=== PATIENT | female | born 1995 | race Caucasian/White ===

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

== ENCOUNTER 2018-12-08 20:23 | Emergency (ER) | payer BC, OTHER ==
[~2018-12-08] VITALS: Ht 157.5 cm; Wt 47.7 kg
[~2018-12-08 20:23] MED LIST changes: +PREDNISONE20 MG PO; +WELLBUTRIN XL300 M1 PO; +ZANAFLEX 4MG TAB4 MG PO
[2018-12-08 20:29] VITALS: BP 148/82; TEMP 98.4
[2018-12-08 20:53] LABS: COLLECTION METHOD CLEAN CATCH
[2018-12-08] MEDS ORDERED: ZANAFLEX 4MG TAB4 MG PO (21:06)
[2018-12-08] MEDS ORDERED: LEXAPRO 5MG5 MG PO (21:06)
[2018-12-08 21:07] LABS: PH 7 (5-8); SQUAMOUS EPITHELIAL None Seen /hpf; URINE APPEARANCE Clear; URINE BACTERIA None Seen /hpf; URINE BILIRUBIN Negative (NEGATIVE); URINE BLOOD Negative (NEGATIVE); URINE COLOR Straw; URINE GLUCOSE Negative (NEGATIVE); URINE KETONE Negative (NEGATIVE); URINE LEUKOCYTE ESTERASE Negative (NEGATIVE); URINE NITRATE Negative (NEGATIVE); URINE PROTEIN(semi-quant) Negative (NEGATIVE); URINE RBC 0-2 /hpf; URINE UROBILINOGEN Negative (NEGATIVE)
[2018-12-08] MEDS ORDERED: CALAN120 MG PO (21:07)
[2018-12-08] MEDS ORDERED: PAMELOR 25MG25 MG PO (21:07)
[2018-12-08 21:24] LABS: ALANINE AMINOTRANSFERASE 25 U/L (9-52); ALBUMIN 4.8 gm/dL (3.5-5.0); ALKALINE PHOSPHATASE 69 U/L (50-136); ANION GAP 14 mmol/L (7-16); AST,SGOT 50 U/L (15-37); BILIRUBIN,TOTAL 0.6 mg/dL (0.0-1.0); BLOOD UREA NITROGEN 10 mg/dL (7-17); C-REACTIVE PROTEIN < 0.5 mg/dL (0.0-0.9); CARBON DIOXIDE 25 mmol/L (22-30); CHLORIDE 103 mmol/L (98-107); CREATININE, serum 0.58 (0.52-1.25); GLUCOSE 82 mg/dL (74-106); LIPASE 67 U/L (23-300); POTASSIUM 4.3 mmol/L (3.4-5.0); SODIUM 142 mmol/L (137-145); TOTAL PROTEIN 8.5 gm/dL (6.4-8.2)
[2018-12-08 21:27] LABS: BASO # 0.1 (0.0-0.2); BASO % 0.8 % (0.0-2.0); EOS # 0.1 (0.0-0.7); EOS % 1.3 % (0-4.0); GRAN # 4.1 (1.4-6.5); GRAN % 47.6 % (42.2-75.2); HEMATOCRIT 45.9 % (37.0-47.0); LYMPH # 3.7 (1.2-3.4); LYMPH % 42.8 % (20.0-51.0); MEAN CELL VOLUME 91 fl (80.0-100.0); MEAN CORPUSCULAR HEMOGLOBIN 30 pg (27.0-31.0); MEAN CORPUSCULAR HGB CONC 33 g/dl (33.0-37.0); MEAN PLATELET VOLUME 9.1 fl (7.4-10.4); MONO # 0.6 (0.1-0.6); MONO % 7.4 % (1.7-9.3); PLATELET COUNT 260 K/mm3 (130-400); RED BLOOD COUNT 5.02 M/mm3 (4.10-5.30); REDCELL DISTRIBUTION WIDTH-CV 12.1 % (11.5-14.5)
[2018-12-09 01:48] VITALS: PULSE 83
== END 2018-12-09 00:20 | disposition home or self-care (01) ==
LOC: COL.ER 20:23
PROVIDERS: Emergency Medicine
DX: R10.11 Right upper quadrant pain (principal); R10.31 Right lower quadrant pain
CPT/HCPCS: J0780; J1885; J2405; J3010; J7030; Q9967

== ENCOUNTER → 2020-05-17 | Outpatient (CLI) | payer BC ==
[~2020-05-17] MED LIST changes: +CALAN120 MG PO; +LEXAPRO 5MG5 MG PO; +PAMELOR 25MG25 MG PO
== END ==
LOC: COL.RAD 12:49
DX: K59.09 Other constipation (principal); K59.02 Outlet dysfunction constipation

== ENCOUNTER → 2020-05-21 | Outpatient (CLI) | payer BC | LOC: COL.RAD 13:00 | DX: K59.09 Other constipation (principal); K59.02 Outlet dysfunction constipation ==

== ENCOUNTER → 2023-02-06 | Outpatient (REF) | payer BC | LOC: ZCOL.LAB 17:24 | DX: J34.89 Other specified disorders of nose and nasal sinuses (principal) ==